=== PATIENT | female | born 1985 | race Caucasian/White ===

== ENCOUNTER → 2021-05-28 | Outpatient (CLI) | payer BC ==
[~2021-05-28] MED LIST: GADOBUTROL 7.5 MMOL/7.5 ML (GADAVIST) VIAL IV ONE
--- NOTE | 2021-05-28 10:48 | Diagnostic Imaging Report ---
PROCEDURE: MR imaging of the brain with and without contrast. TECHNIQUE: Multiplanar, multisequence MR imaging of the brain was performed with and without contrast. INDICATION: Left upper head pain. Clinical concern for demyelinating disease. COMPARISON: None. FINDINGS: There are a few scattered nonspecific subcortical T2 hyperintensities in the frontal lobes. No abnormal intracranial enhancement. No restricted water diffusion. No hemosiderin deposition or evidence of intracranial hemorrhage. Normal morphology including the major midline structures, sella, posterior fossa, and cerebellopontine angle. Normal intracranial flow voids. No hydrocephalus or extra-axial fluid collections. The orbits are negative. Paranasal sinuses and mastoids are clear. Normal bone marrow signal. IMPRESSION: 1. There are a few nonspecific subcortical T2 hyperintensities in the supratentorial white matter. These are of questionable clinical significance and could be seen with migraines, chronic small vessel ischemic change, possibly a demyelinating process. There is no abnormal intracranial enhancement at this time. 2. No evidence of acute infarction or hemorrhage. Dictated by: Dictated on workstation # [id number]
== END ==
LOC: RAD 09:16
PROVIDERS: ATTEND Internal Medicine
DX: G37.9 Demyelinating disease of central nervous system, unspecified (principal)
CPT/HCPCS: 70553

== ENCOUNTER 2021-06-01 11:10 | Outpatient (CLI) | payer BC ==
[2021-06-01 12:46] VITALS: BP 121/86
--- NOTE | 2021-06-01 13:09 | Anesthesia-Procedure Note ---
Procedures/Interventions Procedure Start/Stop/Diagnosis Date of Procedure: Jun 01, 2021 Start Time: 11:20 Referring Physician: John Stop Time: 12:08 Lumbar Puncture Discussed Risk,Benefits: Yes Patient Consents: Yes Position: Lying, L3-4, Right Sterile Technique: Yes Opening Pressure: 14 Fluid Color: clear Spinal Needle Used: Other (25 gauge pencan) Procedure Notes Spoke with patient and discussed risks and benefits. Consent signed. Patient laying on Right side. Beta prep x 3. Fenestrated drape placed. L3/4 interspace palpated. Lido for skin local. 20 gauge seeker needle. 25 g pencan x 1 attempt without difficulty. + CSF. 4 tubes filled to just over 1cc each. Needle removed. To supine position for 30 min. Other Comment: Patient dischared with no questions or concerns READING,NAWAF Rojas CRNA Jun 01, 2021 13:08
[2021-06-01 13:57] LABS: APPEARANCE,CSF CLEAR; COLOR,CSF COLORLESS; CSF GLUCOSE 50 MG/DL (50-80); CSF TUBE NUMBER 4; RED BLOOD CELL,CSF 0 CELLS (0-0); WHITE BLOOD CELL,CSF 1 CELLS (0-5)
[2021-06-01 14:00] LABS: CSF TOTAL PROTEIN < 1 MG/DL (15-40)
== END 2021-06-01 12:46 ==
LOC: SDC 11:10 → EDSTATUS 11:30 → SDC 12:46
PROVIDERS: ATTEND Internal Medicine
DX: G37.9 Demyelinating disease of central nervous system, unspecified (principal)
CPT/HCPCS: 36415; 82945; 83916; 84157; 87070; 87205; 89051